=== PATIENT | female | born 1970 | race African-American/Black ===

== ENCOUNTER → 2017-07-30 | Outpatient (CLI) | payer MEDICARE, MEDICAID ==
[~2017-07-30] MED LIST: AMOXICILLIN 50500 MG PO; B-12500 MCG PO; BACTRIM DS 8001 TAB PO; CEPHALEXIN500 MG PO; CIPRO 500MG TA500 MG PO; D3-55000 IU PO; DIAZEPAM5 MG PO; FLECTOR1 EACH TD; FLONASE 50 MCG16 GM; GABAPENTIN300 M1 PO; HYCODAN 5MG. TAB5 MG PO; KEFLEX 500MG.500 MG PO; LIDODERM 5% PA1 EACH TD; LORTAB 5/500 501 TAB PO; MEDROL 4MG. DOSE4 MG PO; MULTI VITAMINS1 TA1 PO; NATURE'S BLE1000 MCG PO; NORCO 325 MG-51 TAB PO; PERCOCET 10 MG1 EACH PO; PHENERGAN 25MG.25 M1 PO; SAVELLA25 MG PO; SAVELLA50 MG PO; VALIUM 5MG TABLE5 MG PO; VALIUM10 MG PO; VICODIN 5/500 T1 TAB PO; VITAMIN D50000 I1 PO; VOLTAREN75 MG PO; XARELTO20 MG PO; ZANAFLEX2 M1 PO; [UNRECOGNIZED DRUG - OTHER] TP
[2017-07-30 14:20] LABS: AMPHETAMINES/METAMPHETAMINES NEGATIVE ng/mL (<1000)
[2017-08-07 18:40] LABS: Opiates Negative (Cutoff=100)
== END ==
LOC: LAB 12:54
PROVIDERS: Anesthesiology
DX: Z79.899 Other long term (current) drug therapy (principal)